=== PATIENT | female | born 1995 | race Caucasian/White ===

== ENCOUNTER 2017-07-17 20:12 | Emergency (ER) | payer OTHER ==
[2017-07-17] MEDS ORDERED: Ketorolac INJ* 30 MG/ML 1 ML VIAL IV PUSH ONE (22:23)
[2017-07-17] MEDS ORDERED: NS 0.9% 1000 ML* 1,000 ML IV ONE (22:23)
[2017-07-17] MEDS ORDERED: Metoclopramide IV* 5 MG/ML 2 ML VIAL IV SLOW PU ONE (22:24)
[2017-07-17] MEDS ORDERED: Acetaminophen TAB* 325 MG PO ONE (22:24)
[2017-07-17 23:08] LABS: ABS Basophils 0 10^3/ul (0-0.2); ABS Eosinophils 0 10^3/ul (0-0.6); ABS Lymphocytes 0.6 10^3/ul (1.0-4.8); ABS Monocytes 1.3 10^3/ul (0-0.8); ABS Neutrophils 9.2 10^3/ul (1.5-7.7); ABS Nucleated RBC 0 10^3/ul; Eosinophil % 0.1 % (0-6); Hematocrit 40 % (35-47); Hemoglobin 13.7 g/dl (12.0-16.0); Lymphocyte % 5.1 % (25-47); Mean Corpuscular HGB Conc 34 g/dl (31-36); Mean Corpuscular Hemoglobin 29 pg (27-31); Mean Corpuscular Volume 84 fL (80-97); Mean Platelet Volume 8 um3 (7.4-10.4); Nucleated Red Blood Cells % 0; Platelet Count 292 10^3/ul (150-450); Red Blood Count 4.79 10^6/ul (4.0-5.4); Red Cell Distribution Width 13 % (10.5-15)
[2017-07-17 23:15] LABS: Urine Appearance Clear; Urine Blood 1+ (Negative); Urine Color Yellow; Urine Ketones 1+ (Negative); Urine Protein Negative (Negative); Urine Urobilinogen Negative (Negative)
[2017-07-17 23:27] LABS: EGFR Non-African American 91.4 (>60)
[2017-07-18] MEDS ORDERED: Iohexol 300* (CONTRAST) 10 ML SDV IV ONE (00:10)
[2017-07-18 02:29] VITALS: BP 102/65
--- NOTE | 2017-07-18 07:53 | RAD ---
INDICATION: Fever and chills. Vomiting. COMPARISON: None TECHNIQUE: Axial source images were obtained from the hemidiaphragms to the symphysis pubis following administration of oral and intravenous contrast. 104 mL Omnipaque 300 was utilized. Coronal and sagittal reconstructed images were acquired. Lung bases: The lung bases are clear. Liver: The liver is normal in size. There are no masses. There is no ductal dilatation. Gallbladder: There are no calcified gallstones. There is no evidence of wall thickening or pericholecystic fluid. Spleen: The spleen is normal in size. There are no masses. Pancreas: There is no focal pancreatic mass or ductal dilatation. Adrenal glands: There is no evidence of adrenal mass. Kidneys: The kidneys are normal in size and position. There are prompt nephrograms and there is prompt excretion bilaterally. There are no renal parenchymal masses. There is no evidence of nephrolithiasis. Adenopathy: There is no evidence of adenopathy by size criteria. Fluid collections: There is trace free fluid in the minor pelvis likely representing physiologic free fluid. Vessels:There are no significant atherosclerotic changes involving the aorta. There is no focal aneurysm. The iliac vessels are normal in caliber. The IVC appears normal. GI tract: There are no acute CT bowel findings. There is no obstruction. The stomach and small bowel appear normal. The lower GI tract is normal. The cecum, ileocecal valve, and terminal ileum appear normal. The appendix is visualized and appear normal. Pelvic organs: The uterus and adnexa appear normal Bladder: There are no bladder masses. Abdominal and pelvic soft tissues: The extraperitoneal abdominal and pelvic soft tissues appear normal.. Osseous structures: There are no acute osseous findings. Other: None IMPRESSION: NO MASS OR INFLAMMATORY CHANGES. NORMAL APPENDIX..
--- NOTE | 2017-07-31 02:47 | ED ---
Napoleon Sawyer Rebecca, scribed for Robert Perera MD on 07/17/17 at 2220 . Complex/Multi-Sys Presentation - HPI Summary HPI Summary: Pt is a 22 y/o F who presents to ED c/o N/V, sore throat, congestion, abdominal pain and chest tightness. States that she vomited today at approximately 1800 and RLQ pain began immediately upon vomiting. Pain waxes and wanes in intensity , ranked 8/10 upon arrival, though on evaluation, pain is mild. Pt reports that she had a subjective fever earlier today, though it has resolved. Denies diarrhea. Pt took Mucinex [employer]. 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 - History Of Current Complaint Chief Complaint: EDGeneral Time Seen by Provider: 07/17/17 22:13 Hx Obtained From: Patient Onset/Duration: Still Present Severity Currently: Mild Severity Initially: Severe Location: Pain At: - RLQ Aggravating Factor(s): Nothing Alleviating Factor(s): Nothing Associated Signs And Symptoms: Positive: Vomiting, Diarrhea, Abdominal Pain - RLQ, Fever - resolved, Other - Chest tightness - Allergies/Home Medications Allergies/Adverse Reactions: Allergies Allergy/AdvReac Type Severity Reaction Status Date / Time No Known Allergies Allergy Verified 07/17/17 20:25 PMH/Surg Hx/FS Hx/Imm Hx Endocrine/Hematology History: Denies: Hx Diabetes Cardiovascular History: Reports: Other Cardiovascular Problems/Disorders - Coarctation of the aorta Denies: Hx Hypertension Infectious Disease History: No Infectious Disease History: Denies: Traveled Outside the [place] in Last 30 Days - Family History Known Family History: Positive: Cardiac Disease - Social History Alcohol Use: None Substance Use Type: Reports: None Smoking Status (MU): Never Smoked Tobacco Review of Systems Positive: Fever - subjective (resolved) Positive: Sore Throat, Other - [place] Positive: Other - Chest tightness Positive: Abdominal Pain - RLQ, Vomiting, Nausea. Negative: Diarrhea All Other Systems Reviewed And Are Negative: Yes Physical Exam - Summary Physical Exam Summary: VITAL SIGNS: Reviewed. GENERAL: ~Patient is a well-developed and nourished female who is lying comfortable in the stretcher. Patient is not in any acute respiratory distress. HEAD AND FACE: No signs of trauma. No ecchymosis, hematomas or skull depressions. No sinus tenderness. EYES: PERRLA, EOMI x 2, No injected conjunctiva, no nystagmus. EARS: Hearing grossly intact. Ear canals and tympanic membranes are within normal limits. MOUTH: Oropharynx within normal limits. NECK: Supple, trachea is midline, no adenopathy, no JVD, no carotid bruit, no c- spine tenderness, neck with full ROM. CHEST: Symmetric, no tenderness at palpation LUNGS: Clear to auscultation bilaterally. No wheezing or crackles. CVS: Regular rate and rhythm, S1 and S2 present, no murmurs or gallops appreciated. ABDOMEN: Soft, RLQ tenderness. No signs of distention. No rebound no guarding, and no masses palpated. Bowel sounds are normal. EXTREMITIES: FROM in all major joints, no edema, no cyanosis or clubbing. NEURO: Alert and oriented x 3. No acute neurological deficits. Speech is normal and follows commands. SKIN: Dry and warm Triage Information Reviewed: Yes Vital Signs On Initial Exam: Initial Vitals Temp Pulse Resp BP Pulse Ox 99.2 F 120 18 112/76 95 07/17/17 20:21 07/17/17 20:21 07/17/17 20:21 07/17/17 20:21 07/17/17 20:21 Vital Signs Reviewed: Yes Diagnostics - Vital Signs Vital Signs Temp Pulse Resp BP Pulse Ox 07/17/17 20:21 99.2 F 120 18 112/76 95 - Laboratory Result Diagrams: 07/17/17 22:40 07/17/17 22:40 Lab Statement: Any lab studies that have been ordered have been reviewed, and results considered in the medical decision making process. - CT CT Abd/Pel CT Interpretation: No Acute Changes - Negative for appendicitis. Normal appendix visualized. No bowel obstruction, free air, or free fluid. Negative for diverticulitis or colitis. Normal kidneys urinary tracts and urinary bladder. Normal liver. No obvious gallbladder abdnormalities. Normal spleen. Normal pancreas. Normal adrenal glands. Overall no acute abnormalities. Dr. Perera reviewed radiology report. CT Interpretation Completed By: Radiologist Complex Multi-Symp Course/Dx Assessment/Plan: Pt is a 22 y/o F who presents to ED c/o N/V, sore throat, congestion, abdominal pain and chest tightness. States that she vomited today at approximately 1800 and RLQ pain began immediately upon vomiting. Pain waxes and wanes in intensity, ranked 8/10 upon arrival, though on evaluation, pain is mild. Pt reports that she had a subjective fever earlier today, though it has resolved. Denies diarrhea. CT Abd/Pel reveals no acute findings. In the ED course, pt received Reglan, Toradol, Tylenol and fluids. Pt will be D/C to home with Dx of abdominal pain. She understands and agrees. Medications reviewed. - Diagnoses Provider Diagnoses: Abdominal pain Discharge - Discharge Plan Condition: Stable Disposition: HOME Patient Education Materials: Acute Abdominal Pain (ED) [facility] [[facility]] - Additional Instructions: RETURN TO EMERGENCY DEPARTMENT FOR ANY NEW OR WORSENING SYMPTOMS The documentation as recorded by the Napoleon dinh Rebecca accurately reflects the service I personally performed and the decisions made by me, Robert Perera MD.
== END 2017-07-18 02:27 | disposition home or self-care (01) ==
LOC: ED 20:12
DX: R10.31 Right lower quadrant pain (principal); R11.2 Nausea with vomiting, unspecified; R19.7 Diarrhea, unspecified; R07.89 Other chest pain; R50.9 Fever, unspecified; Z32.02 Encounter for pregnancy test, result negative; Q25.1 Coarctation of aorta
CPT/HCPCS: 36415; 74177; 80053; 81003; 81015; 83690; 84702; 85025; 86141; 86308; 87502; 87651; 96361; 96374; 96375; 99283; A9270-GY; J1885; J2765; Q9967